=== PATIENT | female | born 1970 | race African-American/Black ===

== ENCOUNTER 2024-12-15 10:49 | Emergency (ER) | payer MEDICAID, OTHER ==
[~2024-12-15] VITALS: Ht 167.6 cm; Wt 94.0 kg
[2024-12-15 10:51] VITALS: O2SAT 100
[2024-12-15 11:09] LABS: BASOPHILS % 0.5 % (0.0-2.0); EOSINOPHILS % 1.0 % (0.0-5.0); HEMATOCRIT. 40.7 % (36.0-48.0); HEMOGLOBIN. 13.2 g/dL (12.0-16.0); LYMPHOCYTES % 36.0 % (20.0-50.0); MEAN PLATELET VOLUME 7.9 fl (7.4-10.4); MONOCYTES % 9.8 % (2.0-8.0); NEUTROPHILS % 52.7 % (40.0-76.0); PLATELET 217 x1000/uL (130-400); RED BLOOD CELL COUNT 4.41 mill/uL (4.2-5.4); RED CELL DISTRIBUTION WIDTH 14.4 % (11.6-14.6)
[2024-12-15 11:20] LABS: INR 0.9
[2024-12-15 11:23] LABS: CREATININE 0.8 mg/dL (0.6-1.0)
[2024-12-15 11:24] LABS: UREA NITROGEN BLOOD 15 mg/dL (9-23)
[2024-12-15 11:26] LABS: TROPONIN I HIGH SENSITIVITY 5 ng/L (3.0-34)
[2024-12-15] MEDS: METOCLOPRAMIDE HCL 10MG/2ML VIAL IV ONE (11:32)
[2024-12-15] MEDS: LABETALOL 5MG/ML 4ML INJ IV ONE (13:13)
[2024-12-15 16:17] VITALS: BP 146/92; PULSE 77; RESP 20; TEMP 36.8; O2SAT 100
== END 2024-12-15 16:40 | disposition short-term general hospital (02) ==
LOC: ER 10:55 → EDBEDREQ 12:18 → ER 16:40
DX: I16.1 Hypertensive emergency (principal); R42 Dizziness and giddiness; Z88.0 Allergy status to penicillin; Z86.59 Personal history of other mental and behavioral disorders; Z79.899 Other long term (current) drug therapy
CPT/HCPCS: 80048; 83880; 83735; 85025; 85610; 84484; 36415; 70450; 93005; 96374; 99285; J3490; Z7610 ×5; A4606; J2765